=== PATIENT | male | born 1940 | race Caucasian/White ===

== ENCOUNTER 2017-04-30 17:06 | Emergency (ER) | payer MEDICARE, OTHER ==
[~2017-04-30] VITALS: Ht 170.2 cm; Wt 90.9 kg
[~2017-04-30 17:06] MED LIST: CLOP75 PO; LOTR5CAP3 PO; MECL25 PO; METO50TA PO; ZOCO40TA PO
[2017-04-30 17:10] VITALS: BP 200/102; PULSE 96; RESP 16; TEMP 97.8; O2SAT 95
[2017-04-30] MEDS ORDERED: TIZA4CAP3 PO (17:29)
[2017-04-30] MEDS ORDERED: FURO1TAB62 PO (17:29)
[2017-04-30] MEDS ORDERED: IPRA0.06 EACH NARE (17:29)
[2017-04-30] MEDS ORDERED: SIMV40TA PO (17:29)
[2017-04-30] MEDS ORDERED: APIX5TAB PO (17:29)
[2017-04-30] MEDS ORDERED: LOSA100T PO (17:29)
[2017-04-30] MEDS ORDERED: METO50TA PO (17:29)
[2017-04-30] MEDS ORDERED: GABA300C5 PO (17:29)
[2017-04-30] MEDS ORDERED: AZEL1SPR2 EACH NARE (17:29)
[2017-04-30] MEDS ORDERED: AMLO10 PO (17:29)
--- NOTE | 2017-04-30 17:37 | PD ---
HPI Chief Complaint: Cardiac Complaint Time Seen by Provider: 17:14 Travel History International Travel<30 days: No Contact w/Intl Traveler<30days: No Traveled to known affect area: No History of Present Illness HPI This 68-year-old male presents emergency department for evaluation of palpitations. Patient states that since about 5:00 this morning he noticed that his heart was skipping beats and then was rapid. He took his pulse and noted it was 105. He does have a history of atrial fibrillation thought he was in atrial fibrillation again. He has a history of in June having a bypass surgery by a surgeon [facility], he is currently followed by Dr. Mcmanus and when he called her office today their office recommended that she come to the emergency department to be evaluated. He denies any chest pain or shortness of breath. States symptoms are mild he just wanted to make sure everything was okay. PFSH Past Medical History Hx Anticoagulant Therapy: Yes Arthritis: Yes Atrial Fibrillation: Yes Blood Disorders: Yes ("Lupus anticoagulant positive") Anxiety: Yes Cardiovascular Problems: Yes Coronary Artery Disease: Yes Diminished Hearing: Yes (bilat aids) Hypertension: Yes Tetanus Vaccination: > 5 Years Influenza Vaccination: Yes Past Surgical History Cardiac Surgery: Yes (stent, triple bypass) Coronary Stent: Yes (AUGUST 2006) Thoracic Surgery: Yes (back surgery spinal stenosis ) Social History Alcohol Use: No Tobacco Use: No Substance Use: No Allergies-Medications (Allergen,Severity, Reaction): Coded Allergies: No Known Allergies (Verified Allergy, Mild, 04/30/17) Reported Meds & Prescriptions Reported Meds & Active Scripts Active Reported Ipratropium Nasal 0.06% Shreve 1 Shreve EACH NARE QID Azelastine Nasal [place]reve (Azelastine HCl) 0.1% Shreve 1 Shreve EACH NARE BID Gabapentin 300 Mg Cap 300 Mg PO TID Lasix (Furosemide) 20 Mg Tab 20 Mg PO DAILY Eliquis (Apixaban) 5 Mg Tab 5 Mg PO BID Tizanidine (Tizanidine HCl) 4 Mg Cap 4 Mg PO TID Losartan (Losartan Potassium) 100 Mg Tab 100 Mg PO DAILY Metoprolol Tartrate 50 Mg Tab 50 Mg PO BID Simvastatin 40 Mg Tab 40 Mg PO HS Norvasc (Amlodipine Besylate) 10 Mg Tab 50 Mg PO DAILY Physical Exam Narrative GENERAL: Well-developed well-nourished, quite pleasant 68-year-old male in no obvious distress SKIN: Focused skin assessment warm/dry. HEAD: Atraumatic. Normocephalic. EYES: Pupils equal and round. No scleral icterus. No injection or drainage. ENT: No nasal bleeding or discharge. Mucous membranes pink and moist. NECK: Trachea midline. No JVD. CARDIOVASCULAR: Regular rate and rhythm with several premature beats. No murmur appreciated. Well-healed midline sternotomy scar RESPIRATORY: No accessory muscle use. Clear to auscultation. Breath sounds equal bilaterally. GASTROINTESTINAL: Abdomen soft, non-tender, nondistended. Hepatic and splenic margins not palpable. MUSCULOSKELETAL: No obvious deformities. No clubbing. No cyanosis. No edema. NEUROLOGICAL: Awake and alert. No obvious cranial nerve deficits. Motor grossly within normal limits. Normal speech. PSYCHIATRIC: Appropriate mood and affect; insight and judgment normal. Data Data Last Documented VS Vital Signs Date Time Temp Pulse Resp B/P (MAP) Pulse Ox O2 Delivery O2 Flow Rate FiO2 04/30/17 18:44 94 Room Air 04/30/17 18:44 67 17 149/79 (102) 04/30/17 17:10 97.8 Orders Orders Electrocardiogram (04/30/17 ) Electrocardiogram (04/30/17 17:31) Complete Blood Count With Diff (04/30/17 17:31) Comprehensive Metabolic Panel (04/30/17 17:31) Magnesium (Mg) (04/30/17 17:31) Prothrombin Time / Inr (Pt) (04/30/17 17:31) Act Partial Throm Time (Ptt) (04/30/17 17:31) Troponin I (04/30/17 17:31) Chest, Single Ap (04/30/17 17:31) Ecg Monitoring (04/30/17 17:31) Iv Access Insert/Monitor (04/30/17 17:31) Oximetry (04/30/17 17:31) Oxygen Administration (04/30/17 17:31) Sodium Chloride 0.9% Flush (Ns Flush) (04/30/17 17:45) Ed Discharge Order (04/30/17 18:18) Labs Laboratory Tests Test 04/30/17 17:15 White Blood Count 6.6 TH/MM3 Red Blood Count 6.06 MIL/MM3 Hemoglobin 17.8 GM/DL Hematocrit 55.5 % Mean Corpuscular Volume 91.6 FL Mean Corpuscular Hemoglobin 29.4 PG Mean Corpuscular Hemoglobin Concent 32.1 % Red Cell Distribution Width 14.5 % Platelet Count 247 TH/MM3 Mean Platelet Volume 7.7 FL Neutrophils (%) (Auto) 63.8 % Lymphocytes (%) (Auto) 21.2 % Monocytes (%) (Auto) 11.7 % Eosinophils (%) (Auto) 1.6 % Basophils (%) (Auto) 1.7 % Neutrophils # (Auto) 4.2 TH/MM3 Lymphocytes # (Auto) 1.4 TH/MM3 Monocytes # (Auto) 0.8 TH/MM3 Eosinophils # (Auto) 0.1 TH/MM3 Basophils # (Auto) 0.1 TH/MM3 CBC Comment DIFF FINAL Differential Comment Prothrombin Time 11.8 SEC Prothromb Time International Ratio 1.2 RATIO Activated Partial Thromboplast Time 46.3 SEC Blood Urea Nitrogen 25 MG/DL Creatinine 1.10 MG/DL Random Glucose 114 MG/DL Total Protein 7.0 GM/DL Albumin 3.6 GM/DL Calcium Level 8.8 MG/DL Magnesium Level 2.0 MG/DL Alkaline Phosphatase 72 U/L Aspartate Amino Transf (AST/SGOT) 31 U/L Alanine Aminotransferase (ALT/SGPT) 52 U/L Total Bilirubin 0.6 MG/DL Sodium Level 142 MEQ/L Potassium Level 3.6 MEQ/L Chloride Level 110 MEQ/L Carbon Dioxide Level 23.4 MEQ/L Anion Gap 9 MEQ/L Estimat Glomerular Filtration Rate 65 ML/MIN Troponin I LESS THAN 0.02 NG/ML MDM Medical Decision Making Medical Screen Exam Complete: Yes Emergency Medical Condition: Yes Interpretation(s) EKG shows underlying normal sinus rhythm, normal axis, nonspecific RSR prime pattern in lead II and aVF, Q waves in 3 and aVF as well as V1 and V2 with poor R-wave progression consistent with prior myocardial infarction. No concerning ST segment changes. There are frequent PACs on this EKG. Cardiac monitoring does show sinus rhythm overall rate probably mid 90s with infrequent PACs and PVCs. Differential Diagnosis PVCs, PACs, atrial fibrillation, ACS unlikely, OH unlikey Narrative Course Patient was room to the emergency department, he appears well and in obvious distress, cardiac telemetry and EKG as above. Basic labs including troponin chemistries are reassuring. 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 He has no chest pain and no shortness of breath. His only complaint is of palpitations. He states they are somewhat resolving since he has been here. His palpitations certainly could be explained by these premature beats but certainly as well as he looks clinically he is stable for outpatient workup and will follow up with Dr. Mcmanus on Wednesday. I discussed with him sign symptoms that should prompt emergent return to the ER, refrain from caffeine the patient states he drinks decaf coffee. He is stable for discharge Diagnosis Primary Impression: Heart palpitations Additional Impressions: PAC (premature atrial contraction) PVC (premature ventricular contraction) Referrals: Yessy Mcmanus MD Disposition: 01 DISCHARGE HOME Condition: Stable Salo Shrestha MD Apr 30, 2017 17:37
[2017-04-30] MEDS ORDERED: SODIUM CHLORIDE 0.9% FLUSH 10 ML FLUSH IVF PRN (17:45)
[2017-04-30 17:56] LABS: CHLORIDE 110 MEQ/L (98-107); SODIUM (NA) 142 MEQ/L (136-145)
[2017-04-30 17:59] LABS: AUTOMATED NEUTROPHIL # 4.2 TH/MM3 (1.8-7.7); BASOPHIL # 0.1 TH/MM3 (0-0.2); BASOPHIL % 1.7 % (0.0-2.0); CALCIUM 8.8 MG/DL (8.5-10.1); EOSINOPHIL # 0.1 TH/MM3 (0-0.4); EOSINOPHIL % 1.6 % (0.0-4.0); HEMATOCRIT 55.5 % (39.0-51.0); HEMOGLOBIN 17.8 GM/DL (13.0-17.0); LYMPH % 21.2 % (9.0-44.0); LYMPHOCYTE # 1.4 TH/MM3 (1.0-4.8); MEAN CELL VOLUME 91.6 FL (80.0-100.0); MEAN CORPUSCULAR HEMOGLOBIN 29.4 PG (27.0-34.0); MEAN CORPUSCULAR HGB CONC 32.1 % (32.0-36.0); MEAN PLATELET VOLUME 7.7 FL (7.0-11.0); MONO % 11.7 % (0.0-8.0); MONOCYTE # 0.8 TH/MM3 (0-0.9); NEUT % 63.8 % (16.0-70.0); PLATELET COUNT 247 TH/MM3 (150-450); RED BLOOD COUNT 6.06 MIL/MM3 (4.50-5.90); RED CELL DISTRIBUTION WIDTH 14.5 % (11.6-17.2); WHITE BLOOD COUNT 6.6 TH/MM3 (4.0-11.0)
[2017-04-30 18:00] LABS: ALBUMIN 3.6 GM/DL (3.4-5.0); BICARBONATE 23.4 MEQ/L (21.0-32.0); BLOOD UREA NITROGEN 25 MG/DL (7-18); GLUCOSE,RANDOM 114 MG/DL (74-106); INTERNATIONAL NORMALIZED RATIO 1.2 RATIO; PROTHROMBIN TIME - PATIENT 11.8 SEC (9.8-11.6)
--- NOTE | 2017-04-30 18:00 | RADRPT ---
EXAM DATE/TIME: 04/30/2017 17:48 [facility] COMPARISON: No previous studies available for comparison. INDICATIONS : Chest pain. MEDICAL HISTORY : Hypertension. Spinal stenosis. Arthritis. CAD, AFIB SURGICAL HISTORY : Coronary artery stent. CABG. Total knee replacement, left. Left hip surgery, Right rotator cuff repai r ENCOUNTER: Initial ACUITY: 1 day PAIN SCORE: 6/10 LOCATION: Bilateral chest FINDINGS: Cardiomegaly and sternotomy wires, mediastinal clips. Lungs are clear. Degenerative changes of the sp ine. CONCLUSION: No acute disease. Cruz Valente MD on April 30, 2017 at 17:59 Board Certified Radiologist. This report was verified electronically.
[2017-04-30 18:03] LABS: ALT (GPT) 52 U/L (12-78); AST (GOT) 31 U/L (15-37); GLOMERULAR FILTRATION RATE 65 ML/MIN (>89)
[2017-04-30 18:06] LABS: ALKALINE PHOSPHATASE 72 U/L (45-117); TOTAL BILIRUBIN ADULT 0.6 MG/DL (0.2-1.0)
[2017-04-30 18:08] LABS: TROPONIN I LESS THAN 0.02 NG/ML (0.02-0.05)
[2017-04-30 18:44] VITALS: BP 149/79; O2SAT 94
--- NOTE | 2017-05-01 09:20 | EKG ---
Date Performed: 04/30/2017 Time Performed: 17:20:28 PTAGE: 76 years EKG: Sinus rhythm WITH FREQUENT SUPRAVENTRICULAR PREMATURE COMPLEXES POSSIBLE ANTERIOR MYOCARDIAL INFARCTION INFERIOR MYOCARDIAL INFARCTION ABNORMAL ECG PREVIOUS TRACING : 07/14/2007 10.15 DOCTOR: Elio Jackson Interpretating Date/Time 05/01/2017 09:18:49
== END 2017-04-30 18:51 | disposition home or self-care (01) ==
LOC: PHEFT 17:06
DX: I49.1 Atrial premature depolarization (principal); I49.3 Ventricular premature depolarization; I10 Essential (primary) hypertension; I25.10 Atherosclerotic heart disease of native coronary artery without angina pectoris; Z79.01 Long term (current) use of anticoagulants
CPT/HCPCS: 71045; 80053; 83735; 84484; 85025; 85610; 85730; 93005; 99285